=== PATIENT | male | born 1950 | race Caucasian/White ===

== ENCOUNTER 2021-08-27 09:27 | Inpatient (IN) ==
[~2021-08-27 09:27] MED LIST: Acetaminophen IV 1,000 MG/100 ML BAG IVPB ONE; Famotidine 20 MG/2 ML VIAL IVP ONE; Ringers Solution, Lactated 1,000 ML IVC ONE
[2021-08-27] MEDS ORDERED: *HR* FentaNYL (PF) 100 MCG/2 ML VIAL ONE (09:36)
[2021-08-27] MEDS ORDERED: *HR* Succinylcholine 200 MG/10 ML VIAL IVP ONE (09:36)
[2021-08-27] MEDS ORDERED: *HR* Propofol 200 MG/20 ML VIAL IVP ONE (09:36)
[2021-08-27] MEDS ORDERED: *HR* Midazolam HCl 2 MG/2 ML VIAL ONE (09:36)
[2021-08-27] MEDS ORDERED: Ondansetron 4 MG/2 ML VIAL ONE (09:36)
[2021-08-27] MEDS ORDERED: *HR* Rocuronium Bromide 50 MG/5 ML VIAL ONE ×2 (09:36→12:40)
[2021-08-27] MEDS ORDERED: Lidocaine HCL 4 ML Topical Solution (Laryng-O-Jet Kit Sterile Pak) TP ONE (09:36)
[2021-08-27] MEDS ORDERED: Lidocaine -MPF 2% 5 ML VIAL ONE (09:36)
[2021-08-27] MEDS ORDERED: *HR* Phenylephrine 10 MG/ML VIAL ONE (09:40)
[2021-08-27] MEDS ORDERED: *HR* Remifentanil 1 MG VIAL IVP ONE (09:45)
[2021-08-27] MEDS ORDERED: *HR* Etomidate 40 MG/20 ML VIAL IVP ONE (09:48)
[2021-08-27] MEDS ORDERED: EPHEDrine 50 MG/ML VIAL ONE (09:50)
[2021-08-27] MEDS ORDERED: CeFAZolin Syr 2,000MG/20 ML 2,000 MG/20 ML SYRINGE IVPB ONE (09:52)
[2021-08-27] MEDS ORDERED: Albumin Human 5% 0 GM/0 ML IV.SOLN ONE (10:04)
[2021-08-27] MEDS ORDERED: Famotidine 20 MG/2 ML VIAL IVP ONE (10:30)
[2021-08-27] MEDS ORDERED: Ondansetron 4 MG/2 ML VIAL IVP PRN ×2 (10:33→15:49)
[2021-08-27] MEDS ORDERED: Naloxone 0.4 MG/ML INJ IVP PRN ×2 (10:33→15:49)
[2021-08-27] MEDS ORDERED: Albuterol 2.5 MG/3 ML NEBULIZER IH PRN (10:33)
[2021-08-27] MEDS ORDERED: *HR* Metoprolol 5 MG/5 ML VIAL IVP PRN (10:33)
[2021-08-27] MEDS ORDERED: Ipratropium Neb 0.5 MG NEBULIZER IH PRN (10:33)
[2021-08-27] MEDS ORDERED: Nitroglycerin 0.4 MG TAB.SUBL SL PRN (10:33)
[2021-08-27] MEDS ORDERED: *HR* FentaNYL (PF) 100 MCG/2 ML VIAL IVP PRN (10:33)
[2021-08-27] MEDS ORDERED: *HR* Heparin 5,000 UNIT/ML VIAL ONE (10:47)
[2021-08-27] MEDS ORDERED: Lidocaine 1% 20 ML MDV ONE (10:48)
[2021-08-27] MEDS ORDERED: *HR* HYDROMORPHONE 2 MG/ML VIAL ONE (13:16)
[2021-08-27] MEDS ORDERED: Sugammadex Sodium 200 MG/2 ML VIAL IV ONE (13:16)
[2021-08-27] MEDS: *HR* HYDROmorphone (PF) 1 MG/ML SYRINGE IVP PRN ×2 (14:32→14:41)
[2021-08-27] MEDS: Ipratropium/Albuterol Neb 3 ML IH SCH ×3 (16:12→23:37)
[2021-08-27] MEDS: Gabapentin 300 MG CAPSULE PO SCH ×2 (16:54→20:18)
[2021-08-27] MEDS: 0.9 % Sodium Chloride 1,000 ML IVC SCH (17:00)
[2021-08-27] MEDS: *HR* HYDROcodone/Acet 5/325 mg TABLET PO PRN ×2 (17:52→23:26)
[2021-08-27] MEDS: Famotidine 20 MG TABLET PO SCH (20:17)
[2021-08-27] MEDS: Sennosides/Docusate Sodium TABLET PO SCH (20:18)
[2021-08-27] MEDS: *HR* Heparin 5,000 UNIT/ML VIAL SQ SCH (22:56)
[2021-08-28 02:28] LABS: Hemoglobin 13.3 g/dL (12.9-16.9); Mean Corpuscular Hemoglobin 32.6 pg (28.0-33.3); Mean Corpuscular Volume 93.1 fL (83.0-100.0); Mean Platelet Volume 10.2 fL (9.4-12.4); Platelet Count 200 K/mcL (140-400); Red Blood Count 4.08 M/mcL (4.19-5.50); Red Cell Distribution Width 12.6 % (11.5-14.5); White Blood Count 11.6 K/mcL (4.3-11.1)
[2021-08-28 02:47] LABS: BUN/Creatinine Ratio 15 (6-26); Blood Urea Nitrogen 14 mg/dL (8-23); Calcium 8.6 mg/dL (8.6-10.3); Carbon Dioxide 22 mEq/L (23-29); Chloride 105 mEq/L (98-107); Glucose 193 mg/dL (70-105); Magnesium 1.8 mg/dL (1.6-2.6); Osmolality,Calculated 290 (280-300); Sodium 137 mEq/L (136-145); eGFR For African Americans > 60 (> 60); eGFR For Non-African Americans > 60 (> 60)
[2021-08-28] MEDS: *HR* HYDROcodone/Acet 5/325 mg TABLET PO PRN ×3 (03:28→16:31)
[2021-08-28] MEDS: Ipratropium/Albuterol Neb 3 ML IH SCH ×6 (04:05→22:59)
[2021-08-28] MEDS: 0.9 % Sodium Chloride 1,000 ML IVC SCH (05:58)
[2021-08-28] MEDS: *HR* Heparin 5,000 UNIT/ML VIAL SQ SCH ×3 (05:59→20:42)
[2021-08-28] MEDS: Sennosides/Docusate Sodium TABLET PO SCH ×2 (08:24→20:43)
[2021-08-28] MEDS: Gabapentin 300 MG CAPSULE PO SCH ×3 (08:25→20:43)
[2021-08-28] MEDS: Famotidine 20 MG TABLET PO SCH ×2 (08:26→20:43)
[2021-08-28] MEDS: Aspirin 81 MG TAB.CHEW PO SCH (08:26)
[2021-08-29] MEDS: Ipratropium/Albuterol Neb 3 ML IH SCH ×6 (03:52→23:43)
[2021-08-29] MEDS: *HR* Heparin 5,000 UNIT/ML VIAL SQ SCH ×3 (05:58→20:36)
[2021-08-29] MEDS: Aspirin 81 MG TAB.CHEW PO SCH (08:07)
[2021-08-29] MEDS: Gabapentin 300 MG CAPSULE PO SCH ×3 (08:07→20:36)
[2021-08-29] MEDS: Famotidine 20 MG TABLET PO SCH ×2 (08:07→20:35)
[2021-08-29] MEDS: Sennosides/Docusate Sodium TABLET PO SCH ×2 (08:07→20:37)
[2021-08-29] MEDS: *HR* HYDROcodone/Acet 5/325 mg TABLET PO PRN (17:45)
[2021-08-30] MEDS: Ipratropium/Albuterol Neb 3 ML IH SCH ×3 (03:59→11:26)
[2021-08-30] MEDS: *HR* Heparin 5,000 UNIT/ML VIAL SQ SCH (05:32)
[2021-08-30 06:49] VITALS: PULSE 75
[2021-08-30] MEDS: Aspirin 81 MG TAB.CHEW PO SCH (09:15)
[2021-08-30] MEDS: Gabapentin 300 MG CAPSULE PO SCH (09:15)
[2021-08-30] MEDS: Famotidine 20 MG TABLET PO SCH (09:15)
[2021-08-30] MEDS: Sennosides/Docusate Sodium TABLET PO SCH (09:15)
[2021-08-30 10:43] VITALS: BP 103/71; TEMP 98.6
[2021-08-30 11:29] VITALS: O2SAT 95
== END 2021-08-30 13:06 | disposition home or self-care (01) | DRG 165 ==
LOC: SAMDAY 09:27 → 2NNU 15:26
PROVIDERS: ADMIT Thoracic Surgery (Cardiothoracic Vascular Surgery); ATTEND Thoracic Surgery (Cardiothoracic Vascular Surgery)